=== PATIENT | female | born 1995 | race Caucasian/White ===

== ENCOUNTER 2017-07-02 10:22 | Emergency (ER) | payer OTHER ==
[~2017-07-02] VITALS: Ht 157.5 cm; Wt 97.0 kg
[2017-07-02 10:36] VITALS: Ht 157.5 cm; Wt 97.0 kg
[2017-07-02] MEDS ORDERED: GUAI-637 PO (12:13)
[2017-07-02] MEDS ORDERED: NPH10OT BOTH EARS (12:13)
[2017-07-02] MEDS ORDERED: SODI126M NASAL (12:13)
--- NOTE | 2017-07-02 12:19 | ERD ---
ER Documentation Chief Complaint Date/Time DATE: 07/02/17 TIME: 12:15 Chief Complaint States sorethroat x 1 week worst today HPI 22-year-old female complaining of nasal congestion and sore throat 1 week. Patient reports bilateral ear pain and cough since today. Cough is nonproductive. Denies fever or chills. Denies shortness of breath. Denies headache or neck pain. Denies swimming, however patient stated that she uses Q- tips regularly in her ear canal. ROS All systems reviewed and are negative except as per history of present illness. Medications Home Meds Active Scripts Guaifenesin* (Robitussin*) 100 Mg/5 Ml Syrup, 200 MG PO Q4H Y for COUGH, #120 ML Prov:RICKY FERRELL SECURITY TEAM LEAD 07/02/17 Sodium Chloride (Saline Nasal Mist) 126 Ml Mist, 2 SPRAY NASAL Q2H Y for NASAL CONGESTION, #1 BOTTLE Prov:RICKY FERRELL. SECURITY TEAM LEAD 07/02/17 Neomycin/Polymyxin/Hydrocort* (Cortisporin* Otic) 10 Ml Susp, 4 DROP BOTH EARS QID for 7 Days, EA Prov:RICKY FERRELL. SECURITY TEAM LEAD 07/02/17 Allergies Allergies: Coded Allergies: No Known Allergy (Unverified , 07/02/17) PMhx/Soc History of Surgery: No Anesthesia Reaction: No Hx Neurological Disorder: No Hx Respiratory Disorders: No Hx Cardiac Disorders: No Hx Psychiatric Problems: No Hx Miscellaneous Medical Probl: No Hx Alcohol Use: No Hx Substance Use: No Hx Tobacco Use: No Physical Exam Vitals Vital Signs Date Time Temp Pulse Resp B/P Pulse Ox O2 Delivery O2 Flow Rate FiO2 07/02/17 10:36 99.1 100 20 117/70 92 Physical Exam General: Well-developed, well-nourished, conscious and coherent, in no distress Skin: Warm and dry without rash, good texture and turgor Head: Normocephalic without evidence of trauma Eyes: Sclera and conjunctivae normal; pupils equal, round, and reactive to light; extraocular movements are intact Ears: Canals erythematous with narrowing bilaterally. Tympanic membranes are clear Nose/Face: Nasal mucosa erythematous and swollen with clear nasal discharge mouth/throat: Mucous membranes are moist. Posterior pharynx clear without erythema or exudates Neck: Supple without meningismus or adenopathy. Carotids are equal. Trachea midline. No bruits or JVD Chest: Normal AP diameter. Good expansion without retractions. Nontender. Lungs are clear to auscultate bilaterally with good tidal volume Heart: Regular rate and rhythm. No murmur, rub, or gallops heard Extremities: Full range of motion. Good strength bilaterally. No clubbing, cyanosis, or edema. Peripheral pulses are intact. Sensation intact Neuro: Alert and oriented 4, GCS 15. Cranial nerves grossly intact. Motor and sensory exams nonfocal. Moves all extremities. Speech clear. Gait normal Procedures/MDM Patient is afebrile, in no respiratory distress. Lungs are clear to auscultate. I doubt that patient has pneumonia or bronchitis. Likely patient's symptoms are result of viral upper respiratory infection. Patient noted to have bilateral otitis externa eye exam, likely due to secondary to Q-tip use. No sign of mastoiditis. Patient appears well, stable for discharge and outpatient management. Medical decision making shared with patient and family. Education provided to patient and family. Patient and family expressed understanding of the plan. Medications on discharge: Cortisporin Otic, saline nasal spray, Robitussin. Follow-up: Primary care provider in 2-3 days or return to ED if worse. Disclaimer: Inadvertent spelling and grammatical errors are likely due to EHR/ dictation software use and do not reflect on the overall quality of patient care. Also, please note that the electronic time recorded on this note does not necessarily reflect the actual time of the patient encounter. Departure Diagnosis: Primary Impression: Otitis externa of both ears Otitis externa type: diffuse Chronicity: acute Qualified Code: H60.313 - Acute diffuse otitis externa of both ears Additional Impression: URI (upper respiratory infection) URI type: acute nasopharyngitis (common cold) Qualified Code: J00 - Acute nasopharyngitis Condition: Stable Patient Instructions: Adult Self-Care for Colds, External Ear Infection (Adult) Referrals: COMM[facility]ITY CLIN[facility] YOU HAVE RECEIVED A MEDICAL SCREENING EXAM AND THE RESULTS INDICATE THAT YOU DO NOT HAVE A CONDITION THAT REQUIRES URGENT TREATMENT IN THE EMERGENCY DEPARTMENT. FURTHER EVALUATION AND TREATMENT OF YOUR CONDITION CAN WAIT UNTIL YOU ARE SEEN IN YOUR DOCTORS OFFICE WITHIN THE NEXT 1-2 DAYS. IT IS YOUR RESPONSIBILITY TO MAKE AN APPOINTMENT FOR FOLOW-UP CARE. IF YOU HAVE A PRIMARY DOCTOR --you should call your primary doctor and schedule an appointment IF YOU DO NOT HAVE A PRIMARY DOCTOR YOU CAN CALL OUR PHYSICIAN REFERRAL HOTLINE AT IF YOU CAN NOT AFFORD TO SEE A PHYSICIAN YOU CAN CHOSE FROM THE FOLLOWING [facility] [address] [facility] [address] [facility] [facility] [address] [facility] [address] [facility]. [facility] [address] [facility]. [facility]. [address] Additional Instructions: Call your primary care doctor TOMORROW for an appointment during the next 2-3 days.See the doctor sooner or return here if your condition worsens before your appointment time. RICKY FERRELL NP Jul 02, 2017 12:19
== END 2017-07-02 12:20 | disposition home or self-care (01) ==
LOC: FTE 10:22
DX: H60.313 Diffuse otitis externa, bilateral (principal); J00 Acute nasopharyngitis [common cold]
CPT/HCPCS: 99283

== ENCOUNTER 2017-08-05 10:22 | Emergency (ER) | payer OTHER ==
[~2017-08-05] VITALS: Ht 149.9 cm; Wt 98.0 kg
[~2017-08-05 10:22] MED LIST: GUAI-637 PO; NPH10OT BOTH EARS; SODI126M NASAL
[2017-08-05 10:25] VITALS: Ht 149.9 cm; Wt 98.0 kg
[2017-08-05] MEDS ORDERED: ONDANSETRON 4 MG INJ IV STA (11:26)
[2017-08-05] MEDS ORDERED: SOD CHLORIDE 0.9% 1,000 ML IV STA (11:26)
[2017-08-05] MEDS ORDERED: KETOROLAC 30 MG INJ IV STA (11:26)
[2017-08-05 12:14] LABS: ADD UMIC YES; UR ASCORBIC ACID NEGATIVE (NEGATIVE); UR BACTERIA FEW /HPF (NONE SEEN); UR BILIRUBIN (Dip) NEGATIVE (NEGATIVE); UR BLOOD (Dip) NEGATIVE (NEGATIVE); UR CLARITY CLEAR (CLEAR); UR COLOR STRAW (YELLOW); UR GLUCOSE (Dip) NEGATIVE (NEGATIVE); UR KETONES (Dip) NEGATIVE (NEGATIVE); UR LEUKOCYTE ESTERASE (Dip) 1+ Leu/ul (NEGATIVE); UR NITRITE (Dip) NEGATIVE (NEGATIVE); UR RBC 1 /HPF (0-5); UR SPECIFIC GRAVITY (Dip) 1.006 (1.003-1.030); UR SQUAMOUS EPITHELIAL CELL FEW /HPF (FEW); UR TOTAL PROTEIN (Dip) NEGATIVE (NEGATIVE); UR UROBILINOGEN (Dip) NEGATIVE (NEGATIVE)
[2017-08-05 12:16] LABS: BASOPHILS % 0.2 % (0.0-2.0); EOSINOPHILS # 0.1 10^3/ul (0.0-0.5); EOSINOPHILS % 0.5 % (0.0-7.0); HEMATOCRIT 40.3 % (37.0-47.0); HEMOGLOBIN 13.4 g/dl (12.0-16.0); LYMPHOCYTES # 2.5 10^3/ul (0.8-2.9); LYMPHOCYTES % 15.9 % (15.0-51.0); MEAN CORPUSCULAR HEMOGLOBIN 29.7 pg (29.0-33.0); MEAN CORPUSCULAR HGB CONC 33.3 g/dl (32.0-37.0); MEAN CORPUSCULAR VOLUME 89.4 fl (82.0-101.0); MEAN PLATELET VOLUME 9.5 fl (7.4-10.4); MONOCYTE # 0.8 10^3/ul (0.3-0.9); MONOCYTES % 5.3 % (0.0-11.0); NEUTROPHIL # 12.2 10^3/ul (1.6-7.5); NEUTROPHILS % 77.7 % (39.0-77.0); PLATELET COUNT 462 10^3/UL (140-415); RED BLOOD COUNT 4.51 10^6/ul (4.20-5.40); RED CELL DISTRIBUTION WIDTH 13.1 % (11.5-14.5); WHITE BLOOD COUNT 15.7 10^3/ul (4.8-10.8)
[2017-08-05 12:29] LABS: ALBUMIN 4.5 g/dl (3.3-4.9); ALBUMIN/GLOBULIN RATIO 1.25; BILIRUBIN,INDIRECT 0.2 mg/dl (0-1.1); BILIRUBIN,TOTAL 0.2 mg/dl (0.2-1.3); CREATININE 0.53 mg/dl (0.44-1.00); POTASSIUM 4.2 mmol/L (3.5-5.1); TOTAL PROTEIN 8.1 g/dl (6.1-8.1)
--- NOTE | 2017-08-05 12:29 | RADRPT ---
PROCEDURE: Right upper quadrant abdominal ultrasound. CLINICAL INDICATION: Abdominal pain TECHNIQUE: Babb scale and color doppler ultrasound images of the right upper quadrant of the abdom en. COMPARISON: None FINDINGS: Pancreas: Not adequately visualized due to overlying bowel gas. Liver: Morphology:Normal in size. Contour:Normal, no evidence of nodularity. Echogenicity: Increased Focal lesions:None. Main portal vein: Patent with hepatopetal flow. Biliary System: Gallbladder wall: Normal thickness. Gallstones: Present Intrahepatic bile ducts: Normal caliber. Common bile duct diameter (mm): 3.0 Kidneys: Right length (cm) : 10.8 Right cortical thickness: Normal. Echogenicity: Normal. Hydronephrosis: None. Renal calculi: None. Focal lesions: None. Free fluid/ascites: None. Abdominal aorta: Not visualized by the neon light installer. Other findings: None. IMPRESSION: Cholelithiasis without evidence of abnormal gallbladder wall thickening to suggest cholecystitis. Normal caliber of the intrahepatic and extrahepatic biliary system. Increased echogenicity of the liver parenchyma suggestive of hepatic steatosis. RPTAT: AADD .Javy Malloy MD, MD Date Time Electronically viewed and signed by .Javy Malloy MD, on 08/05/2017 12:29 .B/
--- NOTE | 2017-08-05 12:47 | ERD ---
ER Documentation Chief Complaint Date/Time DATE: 08/05/17 TIME: 12:43 Chief Complaint on and off abdominal pain x 1 month got worst today HPI Patient is 22-year-old female who presents to the ED with right-sided abdominal pain and right-sided back pain on and off 1 month. However she states that it has gotten worse in the last 2 days. She states that the pain started on her back and radiated to the front. She denies triggering factors. Unsure of when she has pain but it is not caused by food. Denies urinary symptoms. Denies falls or trauma. Also complains of nausea with no vomiting. Denies fever or chills. Does have a family history of gallstones. No history of kidney stones. Normal bowel movement, yesterday. Denies recent travel. No other complaints. ROS All systems reviewed and are negative except as per history of present illness. Medications Home Meds Active Scripts Nitrofurantoin Monohyd Macrocr* (Macrobid*) 100 Mg Capsr, 100 MG PO BID for 5 Days, CAP Prov:TACO DAVIS PA-C 08/05/17 Docusate Sodium* (Colace*) 100 Mg Capsule, 100 MG PO TID, #30 CAP Prov:TACO DAVIS PA-C 08/05/17 Ondansetron Hcl* (Zofran*) 4 Mg Tablet, 4 MG PO Q6H for NAUSEA AND/OR VOMITING, #30 TAB Prov:TACO DAVIS PA-C 08/05/17 Hydrocodone/Acetaminophen (Henderson 5-325 Tablet) 1 Each Tablet, 1 TAB PO Q6H Y for PAIN, #7 TAB Prov:TACO DAVIS PA-C 08/05/17 Guaifenesin* (Robitussin*) 100 Mg/5 Ml Syrup, 200 MG PO Q4H Y for COUGH, #120 ML Prov:RICKY FERRELL NP 07/02/17 Sodium Chloride (Saline Nasal Mist) 126 Ml Mist, 2 SPRAY NASAL Q2H Y for NASAL CONGESTION, #1 BOTTLE Prov:RICKY FERRELL NP 07/02/17 Neomycin/Polymyxin/Hydrocort* (Cortisporin* Otic) 10 Ml Susp, 4 DROP BOTH EARS QID for 7 Days, EA Prov:RICKY FERRELL SURVIVAL EQUIPMENT REPAIRER 07/02/17 Allergies Allergies: Coded Allergies: No Known Allergy (Unverified , 07/02/17) PMhx/Soc Medical and Surgical Hx: pt denies Medical Hx, pt denies Surgical Hx History of Surgery: No Anesthesia Reaction: No Hx Neurological Disorder: No Hx Respiratory Disorders: No Hx Cardiac Disorders: No Hx Psychiatric Problems: No Hx Miscellaneous Medical Probl: No Hx Alcohol Use: No Hx Substance Use: No Hx Tobacco Use: No Smoking Status: Never smoker FmHx Family History: No coronary disease, No diabetes, No other Physical Exam Vitals Vital Signs Date Time Temp Pulse Resp B/P Pulse Ox O2 Delivery O2 Flow Rate FiO2 08/05/17 15:01 66 18 117/85 97 Room Air 08/05/17 10:25 99.3 107 23 129/61 98 Physical Exam GENERAL: Well-developed, well-nourished female. Appears in no acute distress. HEAD: Normocephalic, atraumatic. EYES: Pupils are equally reactive bilaterally. EOMs grossly intact. No conjunctival erythema. ENT: Moist mucous membranes. No uvula deviation. No kissing tonsils. No exudates. NECK: Supple. No lymphadenopathy or thyromegaly. No meningismus. negative kernig. negative brudinski. LUNG: Clear to auscultation bilaterally. No rhonchi, wheezing, rales or coarse breath sounds. HEART: Regular rate and rhythm. No murmurs, rubs or gallops. ABDOMEN: No scars, ecchymosis or rashes noted. Soft, and nondistended. Positive bowel sounds in all four quadrants. No rebound tenderness, no guarding. (-) McBurneys point tenderness. No CVA tenderness. negative blackwood sign. tenderness in right upper and right mid abdominal. tenderness to lateral side of right back. BACK: No midline tenderness. Extremities: Equal pulses bilaterally. No peripheral clubbing, cyanosis or edema. No unilateral leg swelling. NEUROLOGIC: Alert and oriented. Moving all four extremities. 5/5 strength in all extremities. Normal speech. Steady gait. SKIN: Normal color. Warm and dry. No rashes or lesions. Capillary refill < 2 seconds Result Diagram: 08/05/17 1137 08/05/17 1137 Results 24 hrs Laboratory Tests Test 08/05/17 11:37 White Blood Count 15.710^3/ul Red Blood Count 4.5110^6/ul Hemoglobin 13.4g/dl Hematocrit 40.3% Mean Corpuscular Volume 89.4fl Mean Corpuscular Hemoglobin 29.7pg Mean Corpuscular Hemoglobin Concent 33.3g/dl Red Cell Distribution Width 13.1% Platelet Count 25769^3/UL Mean Platelet Volume 9.5fl Neutrophils % 77.7% Lymphocytes % 15.9% Monocytes % 5.3% Eosinophils % 0.5% Basophils % 0.2% Nucleated Red Blood Cells % 0.0/100WBC Neutrophils # 12.210^3/ul Lymphocytes # 2.510^3/ul Monocytes # 0.810^3/ul Eosinophils # 0.110^3/ul Basophils # 0.010^3/ul Nucleated Red Blood Cells # 0.010^3/ul Urine Color STRAW Urine Clarity CLEAR Urine pH 7.0 Urine Specific [place] 1.006 Urine Ketones NEGATIVEmg/dL Urine Nitrite NEGATIVEmg/dL Urine Bilirubin NEGATIVEmg/dL Urine Urobilinogen NEGATIVEmg/dL Urine Leukocyte Esterase 1+Elvia/ul Urine Microscopic RBC 1/HPF Urine Microscopic WBC 7/HPF Urine Squamous Epithelial Cells FEW/HPF Urine Bacteria FEW/HPF Urine Hemoglobin NEGATIVEmg/dL Urine Glucose NEGATIVEmg/dL Urine Total Protein NEGATIVEmg/dl Sodium Level 138mmol/L Potassium Level 4.2mmol/L Chloride Level 105mmol/L Carbon Dioxide Level 25mmol/L Anion Gap 12 Blood Urea Nitrogen 8mg/dl Creatinine 0.53mg/dl Glucose Level 94mg/dl Calcium Level 9.0mg/dl Total Bilirubin 0.2mg/dl Direct Bilirubin 0.00mg/dl Indirect Bilirubin 0.2mg/dl Aspartate Amino Transf (AST/SGOT) 33IU/L Alanine Aminotransferase (ALT/SGPT) 54IU/L Alkaline Phosphatase 86IU/L Total Protein 8.1g/dl Albumin 4.5g/dl Globulin 3.60g/dl Albumin/Globulin Ratio 1.25 Lipase 51U/L Current Medications Medications (Trade) Dose Ordered Sig/Joseph Route PRN Reason Start Time Stop Time Status Last Admin Dose Admin Sodium Chloride (NS) 1,000 ml @ 1,000 mls/hr Q1H STAT IV 08/05/17 11:26 08/05/17 12:25 DC 08/05/17 12:30 Ondansetron HCl (Zofran Inj) 4 mg ONCE STAT IV 08/05/17 11:26 08/05/17 11:33 DC 08/05/17 12:30 Ketorolac Tromethamine (Toradol) 30 mg ONCE STAT IV 08/05/17 11:26 08/05/17 11:33 DC 08/05/17 12:37 Procedures/MDM ER COURSE: I kept the patient and/or family informed of laboratory and diagnostic imaging results throughout the emergency room course. EKG, MONITORS, & DIAGNOSTIC IMAGING: [place] [address] Radiology Main Line: [phone] DIAGNOSTIC IMAGING REPORT Patient: ADRIEL ALBRIGHT : 1995 Age: 22 Sex: F MR #: [id number] DOS: 08/05/17 0000 Ordering MD: TACO DAVIS PA-C Location: [facility] Room/Bed: PROCEDURE: Right upper quadrant abdominal ultrasound. CLINICAL INDICATION: Abdominal pain TECHNIQUE: Babb scale and color doppler ultrasound images of the right upper quadrant of the abdomen. COMPARISON: None FINDINGS: Pancreas: Not adequately visualized due to overlying bowel gas. Liver: Morphology:Normal in size. Contour:Normal, no evidence of nodularity. Echogenicity: Increased Focal lesions:None. Main portal vein: Patent with hepatopetal flow. Biliary System: Gallbladder wall: Normal thickness. Gallstones: Present Intrahepatic bile ducts: Normal caliber. Common bile duct diameter (mm): 3.0 Kidneys: Right length (cm) : 10.8 Right cortical thickness: Normal. Echogenicity: Normal. Hydronephrosis: None. Renal calculi: None. Focal lesions: None. Free fluid/ascites: None. Abdominal aorta: Not visualized by the postal service clerk. Other findings: None. IMPRESSION: Cholelithiasis without evidence of abnormal gallbladder wall thickening to suggest cholecystitis. Normal caliber of the intrahepatic and extrahepatic biliary system. Increased echogenicity of the liver parenchyma suggestive of hepatic steatosis. RPTAT: AADD .Javy Malloy MD, Date Time Electronically viewed and signed by .Jvay Malloy MD, MD on 08/05/2017 12:29 .B/ CC: TACO DAVIS PA-C [place] [address] Radiology Main Line: [phone] DIAGNOSTIC IMAGING REPORT Patient: ADRIEL ALBRIGHT : 1995 Age: 22 Sex: F MR #: [id number] DOS: 08/05/17 1126 Ordering MD: TACO DAVIS PA-C Location: [facility] Room/Bed: PROCEDURE: CT Abdomen and Pelvis without contrast. CLINICAL INDICATION: Right upper quadrant to mid abdominal pain with nausea. TECHNIQUE: CT scan of the abdomen and pelvis without contrast was performed on a multidetector high-resolution CT scanner. The patient was scanned without intravenous contrast. Coronal and sagittal reformatted images were obtained from the axial source images. Images were reviewed on a high-resolution PACS workstation. The total exam CTDI equals 22.9 mGy and the total exam DLP equals 1405.15 mGy-cm. One or the following dose reduction techniques were used: -Automated exposure control. -Adjustment of the mA and/or KV according to patient's size. -Use of iterative reconstruction technique. COMPARISON: Abdominal ultrasound from earlier the same date. FINDINGS: Lung Bases: Unremarkable. GI:. Unremarkable. Liver: There is a slight decrease in the overall attenuation of the liver suggesting mild diffuse steatosis. Gallbladder: There is mild apparent gallbladder wall thickening. There is cholelithiasis. There is no biliary tree dilatation.. Pancreas: Unremarkable. Spleen: Unremarkablel Adrenals: Unremarkable. Kidneys: There is no evidence of urolithiasis or obstructive uropathy. Bladder: Unremarkable. Pelvic Organs: Unremarkable. Skeleton: Normal for age. Other: N/A IMPRESSION: 1. Apparent diffuse gallbladder wall thickening with cholelithiasis. Consider acute cholecystitis. Further evaluation with hepatobiliary imaging may be appropriate. 2. Decreased attenuation in the liver suggesting mild diffuse steatosis. 3. Normal-appearing vermiform appendix visualized. 4. No evidence of urolithiasis or obstructive uropathy. Note: A call report was made to Taco Davis Pa-C on 08/05/2017 12:55: 13 PM. RPTAT: AACC Physician Uche Date Time Electronically viewed and signed by Oscar Quiñones Physician on 08/05/2017 13: 01 JH/ CC: TACO DAVIS PA-C MEDICATIONS: toradol and zofran. tolerated well with no adverse reaction. LAB INTERPRETATION: CBC showed elevated white count to 15. CMP showed no evidence of electrolyte abnormalities, severe acidosis, alkalosis, renal failure, or liver disease. Lipase showed no evidence of acute pancreatitis. UA showed 1+ leukocytes with no nitrities. Urine test was negative. MEDICAL DECISION MAKING: This is a 22-year-old female who presents with abdominal pain and back pain on and off 1 month. Vital signs were reviewed. Patient is afebrile. Patient is not hypoxic. Patient is not toxic or ill-appearing. I consulted with my supervising physician Dr. Barrett came to examine patient at bedside. Dr. Jacinto was also consulted who came to examine patient at bedside and agrees with my medical decision making and discharge plans. Patient had full improvement of pain after administration of Toradol. Patient stated that she was feeling much better and did not have pain. Patient has cholelithiasis with possibly cholecystitis. However patient does not have a fever or elevated liver enzymes and is not toxic or ill-appearing. Therefore patient will be discharged and advised to follow-up with her primary care provider to see a general surgeon. ER precautions were given to patient advised to return for any new onset or worsening symptoms. Low suspicion for ACS, AAA, perforated ulcer, bowel obstruction, cholecystitis, choledocholithiasis, cholangitis, pancreatitis, hepatic abscess, appendicitis, diverticulitis, gastroenteritis, hepatitis, peptic ulcer disease, HELLP syndrome. Also has a UTI. Low suspicion for ovarian torsion, PID, tuboovarian abscess, ectopic , bowel obstruction , pyelonephritis, UTI, appendicitis,. Low suspicion for obstructed or septic stone. DISCHARGE: At this time, patient is stable for discharge and outpatient management with no new complaints during the ER course. Patient was sent home with Abhishek Stewart Colace and Macrobid, Macrobid prescription was called into the pharmacy.. Patient will be discharged home with instructions to recheck for new or worsening symptoms such as fever, nausea, weakness, LOC and to follow up with primary care in the next 1-2 days. Patient was advised to return to the ER for any new or worsening symptoms. Plan was discussed and patient and/or family understands and agrees. Home instructions were given. Departure Diagnosis: Primary Impression: Cholelithiasis Cholelithiasis location: other site Biliary obstruction: without biliary obstruction Qualified Code: K80.80 - Biliary calculus of other site without obstruction Condition: Stable TACO DAVIS PA-C Aug 05, 2017 12:47
--- NOTE | 2017-08-05 13:01 | RADRPT ---
PROCEDURE: CT Abdomen and Pelvis without contrast. CLINICAL INDICATION: Right upper quadrant to mid abdominal pain with nausea. TECHNIQUE: CT scan of the abdomen and pelvis without contrast was performed on a multidetector hig h-resolution CT scanner. The patient was scanned without intravenous contrast. Coronal and sagittal reformatted images were obtained from the axial source images. Images were reviewed on a high-resol [employer] PACS workstation. The total exam CTDI equals 22.9 mGy and the total exam DLP equals 1405.15 mG y-cm. One or the following dose reduction techniques were used: -Automated exposure control. -Adjustment of the mA and/or KV according to patient's size. -Use of iterative reconstruction technique. COMPARISON: Abdominal ultrasound from earlier the same date. FINDINGS: Lung Bases: Unremarkable. GI:. Unremarkable. Liver: There is a slight decrease in the overall attenuation of the liver suggesting mild diffuse st eatosis. Gallbladder: There is mild apparent gallbladder wall thickening. There is cholelithiasis. There is n o biliary tree dilatation.. Pancreas: Unremarkable. Spleen: Unremarkablel Adrenals: Unremarkable. Kidneys: There is no evidence of urolithiasis or obstructive uropathy. Bladder: Unremarkable. Pelvic Organs: Unremarkable. Skeleton: Normal for age. Other: N/A IMPRESSION: 1. Apparent diffuse gallbladder wall thickening with cholelithiasis. Consider acute cholecystitis. F urther evaluation with hepatobiliary imaging may be appropriate. 2. Decreased attenuation in the liver suggesting mild diffuse steatosis. 3. Normal-appearing vermiform appendix visualized. 4. No evidence of urolithiasis or obstructive uropathy. Note: A call report was made to Troy Davis Pa-C on 08/05/2017 12:55:13 PM. RPTAT: AACC Physician Uche Date Time Electronically viewed and signed by Physician Uche on 08/05/2017 13:01 /
[2017-08-05] MEDS ORDERED: DOCU-144 PO (14:25)
[2017-08-05] MEDS ORDERED: HYDR-906 PO (14:25)
[2017-08-05] MEDS ORDERED: ONDA4TAB8 PO (14:25)
[2017-08-05 15:01] VITALS: BP 117/85; PULSE 66; RESP 18
[2017-08-05] MEDS ORDERED: NITR-58 PO (15:13)
== END 2017-08-05 15:00 | disposition home or self-care (01) ==
LOC: FTE 10:22
DX: K80.80 Other cholelithiasis without obstruction (principal)
CPT/HCPCS: 36415; 74176; 76705; 80053; 81001; 83690; 85025; 96374; 96375; J1885; J2405; J7030; Z7502

== ENCOUNTER 2017-09-10 02:54 | Emergency (ER) | payer OTHER ==
[~2017-09-10] VITALS: Ht 149.9 cm; Wt 97.5 kg
[~2017-09-10 02:54] MED LIST changes: +DOCU-144 PO; +HYDR-906 PO; +NITR-58 PO; +ONDA4TAB8 PO
[2017-09-10 02:57] VITALS: Ht 149.9 cm; Wt 97.5 kg
--- NOTE | 2017-09-10 03:06 | ERD ---
ER Documentation Chief Complaint Chief Complaint c/o RUQ pain. (+) nausea. Hx of GS. HPI The patient is a 22-year-old female, presenting to the ER because of recurrent right upper quadrant abdominal pain since yesterday afternoon, Radiating to her right upper back. She has similar symptoms previously in September 05, [address] had a CT of the abdomen and the US of the gallbladder. She was able to follow with her doctor however she did not. She denies fever, chills, neck pain, chest pain, vomiting, dysuria, diarrhea, constipation. She does not smoke nor drink Past medical history: Cholelithiasis Past surgical history: None ROS All systems reviewed and are negative except as per history of present illness. Medications Home Meds Active Scripts Ibuprofen* (Motrin*) 600 Mg Tab, 600 MG PO Q6, #20 TAB Prov:JESSICA QUICK MD 09/10/17 Nitrofurantoin Monohyd Macrocr* (Macrobid*) 100 Mg Capsr, 100 MG PO BID for 5 Days, CAP Prov:TACO HUTTON PA-C 08/05/17 Docusate Sodium* (Colace*) 100 Mg Capsule, 100 MG PO TID, #30 CAP Prov:TACO HUTTON PA-C 08/05/17 Ondansetron Hcl* (Zofran*) 4 Mg Tablet, 4 MG PO Q6H for NAUSEA AND/OR VOMITING, #30 TAB Prov:TACO HUTTON PA-C 08/05/17 Hydrocodone/Acetaminophen ([place] 5-325 Tablet) 1 Each Tablet, 1 TAB PO Q6H Y for PAIN, #7 TAB Prov:TACO HUTTON PA-C 08/05/17 Guaifenesin* (Robitussin*) 100 Mg/5 Ml Syrup, 200 MG PO Q4H Y for COUGH, #120 ML Prov:RICKY FERRELL NP 07/02/17 Sodium Chloride (Saline Nasal Mist) 126 Ml Mist, 2 SPRAY NASAL Q2H Y for NASAL CONGESTION, #1 BOTTLE Prov:RICKY FERRELL NP 07/02/17 Neomycin/Polymyxin/Hydrocort* (Cortisporin* Otic) 10 Ml Susp, 4 DROP BOTH EARS QID for 7 Days, EA Prov:RICKY FERRELL NP 07/02/17 Allergies Allergies: Coded Allergies: No Known Allergy (Unverified , 07/02/17) PMhx/Soc History of Surgery: No Anesthesia Reaction: No Hx Neurological Disorder: No Hx Respiratory Disorders: No Hx Cardiac Disorders: No Hx Psychiatric Problems: No Hx Miscellaneous Medical Probl: No Hx Alcohol Use: No Hx Substance Use: No Hx Tobacco Use: No Physical Exam Vitals Vital Signs Date Time Temp Pulse Resp B/P Pulse Ox O2 Delivery O2 Flow Rate FiO2 09/10/17 02:57 98.8 101 18 122/69 98 Physical Exam Const: No acute distress. Head: Atraumatic. Eyes: Normal Conjunctiva. ENT: Normal External Ears, Nose and Mouth. Neck: Full range of motion. No meningismus. Resp: Clear to auscultation bilaterally. Cardio: Regular rate and rhythm. Abd: Soft, non distended, normal bowel sounds, Mild right upper quadrant epigastric tenderness, no rigidity, rebound, CVA tenderness Skin: No petechiae or rashes. Back: No midline or flank tenderness. Ext: No cyanosis, or edema. Neur: Awake and alert. No focal deficit Psych: Normal Mood and Affect. Result Diagram: 09/10/17 0327 09/10/17 032 Results 24 hrs Laboratory Tests Test 09/10/17 03:27 09/10/17 04:05 White Blood Count 14.210^3/ul Red Blood Count 4.2510^6/ul Hemoglobin 12.8g/dl Hematocrit 38.1% Mean Corpuscular Volume 89.6fl Mean Corpuscular Hemoglobin 30.1pg Mean Corpuscular Hemoglobin Concent 33.6g/dl Red Cell Distribution Width 12.6% Platelet Count 31809^3/UL Mean Platelet Volume 9.1fl Neutrophils % 64.5% Lymphocytes % 26.6% Monocytes % 6.8% Eosinophils % 1.6% Basophils % 0.1% Nucleated Red Blood Cells % 0.0/100WBC Neutrophils # 9.110^3/ul Lymphocytes # 3.810^3/ul Monocytes # 1.010^3/ul Eosinophils # 0.210^3/ul Basophils # 0.010^3/ul Nucleated Red Blood Cells # 0.010^3/ul Sodium Level 141mmol/L Potassium Level 3.9mmol/L Chloride Level 103mmol/L Carbon Dioxide Level 25mmol/L Anion Gap 17 Blood Urea Nitrogen 13mg/dl Creatinine 0.67mg/dl Glucose Level 103mg/dl Calcium Level 9.6mg/dl Total Bilirubin 0.1mg/dl Direct Bilirubin 0.00mg/dl Indirect Bilirubin 0.1mg/dl Aspartate Amino Transf (AST/SGOT) 32IU/L Alanine Aminotransferase (ALT/SGPT) 57IU/L Alkaline Phosphatase 81IU/L Total Protein 8.0g/dl Albumin 4.4g/dl Globulin 3.60g/dl Albumin/Globulin Ratio 1.22 Lipase 82U/L Bedside Urine pH (LAB) 6.0 Bedside Urine Protein (LAB) Negative Bedside Urine Glucose (UA) Negative Bedside Urine Ketones (LAB) Negative Bedside Urine Blood Negative Bedside Urine Nitrite (LAB) Negative Bedside Urine Leukocyte Esterase (L Trace Current Medications Medications (Trade) Dose Ordered Sig/Joseph Route PRN Reason Start Time Stop Time Status Last Admin Dose Admin Morphine Sulfate (morphine) 4 mg ONCE STAT IV 09/10/17 03:13 09/10/17 03:15 DC 09/10/17 04:10 Ondansetron HCl 4 mg 4 mg ONCE STAT IV 09/10/17 03:13 09/10/17 03:15 DC 09/10/17 04:10 Sodium Chloride (NS) 1,000 ml @ 1,000 mls/hr Q1H ONCE IV 09/10/17 03:30 09/10/17 04:29 09/10/17 04:10 Procedures/[place] [id number] Radiology Main Line: [phone] DIAGNOSTIC IMAGING REPORT Patient: ADRIEL ALBRIGHT : 1995 Age: 22 Sex: F MR #: [id number] DOS: 09/10/17 0313 Ordering MD: JESSICA QUICK MD Location: E/R Room/Bed: PROCEDURE: ULTRASOUND LIMITED ABDOMEN CLINICAL INDICATION: 22-year-old female with abdominal pain. TECHNIQUE: Multiple sonographic of the right upper quadrant of the abdomen were obtained. The images were reviewed on a PACS workstation. COMPARISON: CT abdomen/pelvis August 05, 2017 ultrasound right upper quadrant August 05, 2017. FINDINGS: The pancreas is partially visualized and is otherwise without abnormal echogenicity. The liver displays diffuse increase echogenicity consistent with fatty infiltration. The liver measures 19.1 cm in length. No evidence of intrahepatic biliary ductal dilatation is seen. The portal and hepatic veins are unremarkable. The gallbladder contains multiple shadowing stones. The gallbladder wall is at the upper limits of normal measuring 3.1 mm. No pericholecystic fluid is seen. The common bile duct measures 4.1 mm and is not dilated. The right kidney displays normal echogenicity. The right kidney measures 10.0 cm in length. No caliectasis or hydronephrosis is seen. No free fluid is seen. IMPRESSION: 1. Hepatic steatosis. 2. Cholelithiasis. .Osei Szymanski MD, MD Date Time Electronically viewed and signed by .Osei Szymanski MD, MD on 09/10/2017 03:41 .M/ CC: JESSICA QUICK MD MEDICAL MAKING DECISION: The patient is a 31-year-old female, presenting with acute biliary colic. She was treated with 1 L normal saline for clinical dehydration, morphine 4 mg IV for pain, Zofran 4 mg IV for nausea with good response. The differential diagnoses considered include but are not limited to cholelithiasis, cholecystitis, cystitis, pancreatitis, hepatitis, gastritis, peptic ulcer disease, gastric ulcer, appendicitis, diverticulitis, cholangitis, choledocholithiasis, partial small bowel obstruction. Departure Diagnosis: Primary Impression: Biliary colic Condition: Good Comments She was discharged with Motrin I discussed the findings with the patient. I advised the patient to follow-up with the primary physician in about 1-2 days, sooner if needed and return if any concern. Disclaimer: Inadvertent spelling and grammatical errors are likely due to EHR/ dictation software use and do not reflect on the overall quality of patient care. Also, please note that the electronic time recorded on this note does not necessarily reflect the actual time of the patient encounter. JESSICA QUICK MD Sep 10, 2017 03:06
[2017-09-10] MEDS ORDERED: ONDANSETRON 4 MG INJ IV STA (03:13)
[2017-09-10] MEDS ORDERED: morphine 4 MG/ML VIAL IV STA (03:13)
[2017-09-10] MEDS ORDERED: SOD CHLORIDE 0.9% 1,000 ML IV ONE (03:30)
[2017-09-10 03:42] LABS: BASOPHILS % 0.1 % (0.0-2.0); EOSINOPHILS # 0.2 10^3/ul (0.0-0.5); EOSINOPHILS % 1.6 % (0.0-7.0); HEMATOCRIT 38.1 % (37.0-47.0); HEMOGLOBIN 12.8 g/dl (12.0-16.0); LYMPHOCYTES # 3.8 10^3/ul (0.8-2.9); LYMPHOCYTES % 26.6 % (15.0-51.0); MEAN CORPUSCULAR HEMOGLOBIN 30.1 pg (29.0-33.0); MEAN CORPUSCULAR HGB CONC 33.6 g/dl (32.0-37.0); MEAN CORPUSCULAR VOLUME 89.6 fl (82.0-101.0); MEAN PLATELET VOLUME 9.1 fl (7.4-10.4); MONOCYTES % 6.8 % (0.0-11.0); NEUTROPHIL # 9.1 10^3/ul (1.6-7.5); NEUTROPHILS % 64.5 % (39.0-77.0); PLATELET COUNT 534 10^3/UL (140-415); RED BLOOD COUNT 4.25 10^6/ul (4.20-5.40); RED CELL DISTRIBUTION WIDTH 12.6 % (11.5-14.5); WHITE BLOOD COUNT 14.2 10^3/ul (4.8-10.8)
--- NOTE | 2017-09-10 03:42 | RADRPT ---
PROCEDURE: ULTRASOUND LIMITED ABDOMEN CLINICAL INDICATION: 22-year-old female with abdominal pain. TECHNIQUE: Multiple sonographic of the right upper quadrant of the abdomen were obtained. The imag es were reviewed on a PACS workstation. COMPARISON: CT abdomen/pelvis August 05, 2017 ultrasound right upper quadrant August 05, 2017. FINDINGS: The pancreas is partially visualized and is otherwise without abnormal echogenicity. The liver displays diffuse increase echogenicity consistent with fatty infiltration. The liver measu res 19.1 cm in length. No evidence of intrahepatic biliary ductal dilatation is seen. The portal an d hepatic veins are unremarkable. The gallbladder contains multiple shadowing stones. The gallbladder wall is at the upper limits of n ormal measuring 3.1 mm. No pericholecystic fluid is seen. The common bile duct measures 4.1 mm and i s not dilated. The right kidney displays normal echogenicity. The right kidney measures 10.0 cm in length. No calie ctasis or hydronephrosis is seen. No free fluid is seen. IMPRESSION: 1. Hepatic steatosis. 2. Cholelithiasis. .Osei Szymanski MD, MD Date Time Electronically viewed and signed by .Osei Szymanski MD, on 09/10/2017 03:41 .M/
[2017-09-10 04:06] LABS: ALBUMIN 4.4 g/dl (3.3-4.9); ALBUMIN/GLOBULIN RATIO 1.22; BILIRUBIN,INDIRECT 0.1 mg/dl (0-1.1); BILIRUBIN,TOTAL 0.1 mg/dl (0.2-1.3); CALCIUM 9.6 mg/dl (8.4-10.2); CREATININE 0.67 mg/dl (0.44-1.00); POTASSIUM 3.9 mmol/L (3.5-5.1)
[2017-09-10 04:07] LABS: URINE BLOOD (Dip) POC Negative (NEGATIVE)
[2017-09-10] MEDS ORDERED: IBUP-1542 PO (04:22)
== END 2017-09-10 04:46 | disposition home or self-care (01) ==
LOC: E/R 02:54
DX: K80.50 Calculus of bile duct without cholangitis or cholecystitis without obstruction (principal)
CPT/HCPCS: 76705; 80053; 81003; 83690; 85025; 96374; 96375; J2270; J2405; J7030; Z7502

== ENCOUNTER 2017-11-04 05:26 | Day surgery (SDC) | END 2017-11-04 13:41 | disposition home or self-care (01) ==

== ENCOUNTER 2019-02-09 19:50 | Emergency (ER) | payer OTHER ==
[~2019-02-09] VITALS: Ht 149.9 cm; Wt 98.1 kg
[2019-02-09 19:56] VITALS: Ht 149.9 cm; Wt 98.1 kg
--- NOTE | 2019-02-09 22:43 | ERD ---
ER Documentation Chief Complaint Chief Complaint ST x1 month w/ bilateral ear pain and SOB HPI This is a 23-year-old female presents emergency department with complaints of bilateral ear pain, throat pain for about a month. Denies foreign body sensation to ears. LMP: 01/12/2010. . Denies headache, head injury, loss of consciousness, dizziness, neck pain, neck stiffness, throat pain, difficulty swallowing, difficulty breathing lying flat, shoulder pain, chest pain, back pain, abdominal pain, nausea, vomiting, constipation, diarrhea, urinary symptoms, or possibility being , loss of bowel and bladder control, trauma, injury, falls, difficulty walking due to pain, numbness or tingling sensation, calf pain, recent travel, recent major surgery in the last 3 weeks, calf pain, recent long travel, recent exposure to any illness, recent antibiotic use in the last 3 months, fever, chills, seizures. Past medical history: Surgical history: Social: Denies smoking, use of alcoholic beverages, use of illegal drugs. ROS All systems reviewed and are negative except as per history of present illness. Medications Home Meds Active Scripts Prednisone* (Prednisone*) 20 Mg Tab, 60 MG PO DAILY for 4 Days, TAB Prov:JUDI RODRIGUEZ 02/09/19 Albuterol Sulfate* (Proair HFA*) 8.5 Gm Hfa.aer.ad, 2 PUFF INH Q4H PRN for WHEEZING AND SOB, #1 INHALER Prov:JUDI RODRIGUEZ 02/09/19 Benzonatate* (Tessalon Perle*) 100 Mg Capsule, 100 MG PO Q8H PRN for COUGH, #15 CAP Prov:PASILAJUDI RAI 02/09/19 Ciprofloxacin Hcl/Dexameth (Ciprodex Otic Suspension) 7.5 Ml Drops.susp, 4 DROP BOTH EARS BID for 7 Days, EA Prov:PASJUDI KNIGHT 02/09/19 Ibuprofen* (Motrin*) 800 Mg Tab, 800 MG PO Q6H PRN for PAIN AND OR ELEVATED TEMP, #30 TAB Prov:PASILAJUDI RAI F 02/09/19 Amoxicillin/Potassium Clav (Amox-Clav 875-125 mg Tablet) 875-125 mg Tab, 1 TAB PO BID for 10 Days, #20 TAB Prov:PASJUDI KNIGHT F 02/09/19 Discontinued Scripts Benzonatate* (Tessalon Perle*) 100 Mg Capsule, 100 MG PO Q8H PRN for COUGH, #15 CAP Prov:JUDI RODRIGUEZ 02/09/19 Ciprofloxacin Hcl/Dexameth (Ciprodex Otic Suspension) 7.5 Ml Drops.susp, 4 DROP BOTH EARS BID for 7 Days, EA Prov:JUDI RODRIGUEZ 02/09/19 Allergies Allergies: Coded Allergies: No Known Allergy (Unverified , 11/04/17) PMhx/Soc Medical and Surgical Hx: pt denies Medical Hx, pt denies Surgical Hx History of Surgery: Yes (GAL BLADDER) Anesthesia Reaction: No Hx Neurological Disorder: No Hx Respiratory Disorders: No Hx Cardiac Disorders: No Hx Psychiatric Problems: No Hx Miscellaneous Medical Probl: No Hx Alcohol Use: No Hx Substance Use: No Hx Tobacco Use: No Smoking Status: Never smoker Physical Exam Vitals Vital Signs Date Temp Pulse Resp B/P (MAP) Pulse Ox O2 O2 Flow FiO2 Time Delivery Rate 02/09/19 98.4 87 18 125/75 99 Room Air 23:00 (92) 02/09/19 98.3 97 18 130/85 99 19:56 (100) Physical Exam Const: No acute distress Head: Atraumatic Eyes: Normal Conjunctiva ENT: Normal External Ears, Nose and Mouth. Bilateral ears: External canal has erythema. TM is erythematous. No bleeding. No discharge. No hearing loss. No mastoid tenderness. No foreign body seen to ears. Nose: Midline. There is frontal in nature sinus tenderness palpation. Throat: Uvula is midline and nondisplaced. Tonsils are +2 bilaterally with mild redness and has exudates. Tolerating secretions. Patent airway. Speaks full and clear sentences. No tripoding. Neck: Full range of motion. No meningismus. No nuchal rigidity. No signs of meningeal irritation. Resp: Clear to auscultation bilaterally Cardio: Regular rate and rhythm, no murmurs Abd: Soft, non tender, non distended. Normal bowel sounds Skin: No petechiae or rashes Back: No midline or flank tenderness Ext: No cyanosis, or edema Neur: Awake and alert. Romberg test is negative. No neurological deficits. Psych: Normal Mood and Affect Procedures/MDM Diagnostic tests: Clinical exam. Treatment: Not applicable. Re-evaluation: Not applicable. Differential diagnosis I have low suspicion for sepsis, meningitis, mastoiditis, peritonsillar abscess, retained foreign body to ears, ear trauma, deep space infection. Final diagnosis: Otitis externa. Otitis media. Sinusitis. Prescription: Augmentin. Motrin. Cortisporin otic drops. Follow-up with PCP in the next 24-48 hours. Come back here in the emergency department for any new symptoms or any worsening symptoms. All questions and concerns were answered. Patient and family members verbalized understanding and agreed with plan of care. Hemodynamically stable on discharge. Departure Diagnosis: Primary Impression: Exudative tonsillitis Additional Impressions: Sinusitis Otitis externa Otitis media Condition: Stable Additional Instructions: Follow-up with PCP in the next 24-48 hours. Come back here in the emergency department for any new symptoms or any worsening symptoms. JUDI RODRIGUEZ Feb 09, 2019 22:43
[2019-02-09] MEDS ORDERED: AMOX1TAB10 PO (22:45)
[2019-02-09] MEDS ORDERED: CIPR7.5D BOTH EARS ×2 (22:45→22:48)
[2019-02-09] MEDS ORDERED: IBUP800T48 PO (22:45)
[2019-02-09] MEDS ORDERED: BENZ-6 PO ×2 (22:45→22:48)
[2019-02-09] MEDS ORDERED: ALBU8.5H8 INH (22:49)
[2019-02-09] MEDS ORDERED: PRED20TA PO (22:49)
[2019-02-09 23:00] VITALS: BP 125/75; PULSE 87; RESP 18
== END 2019-02-09 23:00 | disposition home or self-care (01) ==
LOC: FTE 19:50
DX: J03.90 Acute tonsillitis, unspecified (principal); J32.9 Chronic sinusitis, unspecified; H66.93 Otitis media, unspecified, bilateral; H60.93 Unspecified otitis externa, bilateral
CPT/HCPCS: 99283